=== PATIENT | male | born 1990 | race Caucasian/White ===

== ENCOUNTER 2016-09-25 13:20 | Emergency (ER) | payer OTHER ==
[2016-09-25 13:53] LABS: HEMOGLOBIN 16.2 gm/dl (14.0-17.5); RED BLOOD COUNT 5.3 M/UL (4.20-5.50); WHITE BLOOD COUNT 8.6 K/UL (4.5-11.0)
[2016-09-25 14:11] LABS: BUN/CREATININE RATIO 16 (0-10)
== END 2016-09-25 15:15 | disposition home or self-care (01) ==
LOC: ER1 13:20
PROVIDERS: Physician Assistant Medical
DX: R10.12 Left upper quadrant pain (principal); R30.0 Dysuria; F17.200 Nicotine dependence, unspecified, uncomplicated
CPT/HCPCS: 36415; 80053; 81001; 82150; 83690; 85025; 99284

== ENCOUNTER 2020-07-10 17:34 | Emergency (ER) | payer OTHER ==
[2020-07-10 18:35] LABS: HEMOGLOBIN 14.7 gm/dl (14.0-17.5); RED BLOOD COUNT 4.93 M/UL (4.20-5.50); WHITE BLOOD COUNT 6.7 K/UL (4.5-11.0)
[2020-07-10 18:56] LABS: BUN/CREATININE RATIO 23 (0-10)
== END 2020-07-10 22:00 | disposition left against medical advice (07) ==
LOC: ER1 17:34
PROVIDERS: Physician Assistant Medical
DX: R07.9 Chest pain, unspecified (principal); I10 Essential (primary) hypertension; F17.290 Nicotine dependence, other tobacco product, uncomplicated; Z79.899 Other long term (current) drug therapy
CPT/HCPCS: 71045; 80053; 82550; 82553; 83874; 83880; 84484; 85025; 93005; 99285

== ENCOUNTER → 2020-08-05 | Outpatient (CLI) | payer OTHER | LOC: ECHO 09:20 | DX: R07.9 Chest pain, unspecified (principal); I08.1 Rheumatic disorders of both mitral and tricuspid valves | CPT/HCPCS: ECHO; 93306 ==

== ENCOUNTER → 2020-11-04 | Outpatient (CLI) | payer OTHER | LOC: HEART CORB 13:19 | DX: R07.2 Precordial pain (principal) ==